=== PATIENT | male | born 1940 | race Caucasian/White ===

== ENCOUNTER 2017-02-22 06:48 | Emergency (ER) | payer OTHER ==
[2017-02-22 06:56] VITALS: BP 136/56; PULSE 60; TEMP 97.3; BMI 29.6
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
== END 2017-02-22 07:12 ==
LOC: FER 06:48
DX: Z02.83 Encounter for blood-alcohol and blood-drug test (principal); V49.9XXA Car occupant (driver) (passenger) injured in unspecified traffic accident, initial encounter; Y93.9 Activity, unspecified; Y92.9 Unspecified place or not applicable; I10 Essential (primary) hypertension; E78.00 Pure hypercholesterolemia, unspecified; I51.9 Heart disease, unspecified
CPT/HCPCS: 99281-25